=== PATIENT | female | born 1935 | race Caucasian/White ===

== ENCOUNTER → 2016-12-22 | Outpatient (CLI) | payer OTHER ==
[~2016-12-22] MED LIST: ALEN10TA3; ALPR0.25 PO; ASCO500T16 PO; BISA10SU7 PR; BNC5 PO; CLC100X PO; CRS/10 PO; FERR-24 PO; MAGN400T6 PO; MULT-411 PO; OXYC-409 PO; OXYC1TAB3 PO; PIOG1TAB25; PRLSR20 PO; ROSU5TAB PO; SODIENE PR; VITAMIN B SHOT; WARF2TAB8 PO; benicar; metformin
[2016-12-22 14:34] LABS: BASO ABS # 0.04 K/uL (0-0.2); COMPLETE YES; EOS % 2.2 %; HEMATOCRIT 34.7 % (37-47); LYMPH % 31.1 %; LYMPH ABS # 1.25 K/uL (1.2-3.4); MEAN CELL VOLUME 94.6 fL (80-100); MEAN CORPUSCULAR HEMOGLOBIN 29.7 pg (25-34); MEAN CORPUSCULAR HGB CONC 31.4 g/dl (32-36); MEAN PLATELET VOLUME 8.7 fL (7.4-10.4); MONO % 10.4 %; NEUT % 55.3 %; PLATELET COUNT 298 K/uL (130-400); RED BLOOD COUNT 3.67 M/uL (4.2-5.4); WHITE BLOOD COUNT 4.02 K/uL (4.8-10.8)
[2016-12-22 14:40] LABS: ESTIMATED AVERAGE GLUCOSE 134 mg/dl; HA1C FLAG Normal (Normal)
[2016-12-22 15:04] LABS: CALCIUM 10.2 mg/dl (8.5-10.1)
[2016-12-22 15:10] LABS: ALKALINE PHOSPHATASE 56 U/L (45-117); BLOOD UREA NITROGEN 22 mg/dl (7-18); BUN/CREATININE RATIO 23.7 (10-20); CARBON DIOXIDE 27 mmol/L (21-32); CHLORIDE 105 mmol/L (98-107); CHOLESTEROL 148 mg/dl (0-200); CHOLESTEROL/HDL RATIO 2.3; CREATININE 0.91 mg/dl (0.60-1.20); GLUCOSE 100 mg/dl (70-99); HDL CHOLESTEROL 65 mg/dl; LDL CHOLESTEROL CALCULATED 60 mg/dl; POTASSIUM 4.1 mmol/L (3.5-5.1); SODIUM 141 mmol/L (136-145); TRIGLYCERIDES 115 mg/dl (0-150); VERY LOW DENSITY LIPOPROT CALC 23 mg/dl
[2016-12-22 15:14] LABS: ALB/GLOB RATIO 1.1 (0.9-2); ALT/SGPT 12 U/L (12-78); AST/SGOT 14 U/L (15-37); FERRITIN 15.4 ng/ml (8.0-388.0); TOTAL IRON BINDING CAPACITY 399 mcg/dl (250-450)
[2016-12-22 19:02] LABS: RATIO 41.9 mcg/mg (0-30.0)
== END | disposition home or self-care (01) ==
LOC: C.LABMFLN 08:55
PROVIDERS: ATTEND Family Medicine
DX: E11.9 Type 2 diabetes mellitus without complications (principal); D64.9 Anemia, unspecified; E78.5 Hyperlipidemia, unspecified